=== PATIENT | female | born 1950 | race Caucasian/White ===

== ENCOUNTER 2019-07-27 08:13 | Day surgery (SDC) | payer MEDICARE, OTHER ==
[~2019-07-27 08:13] MED LIST: Lactated Ringers 1,000 ML IV SCH; Lidocaine 1%/Sod Bicarbonate in NS 8.4% 1 ML Syringe IDERM PRN; Sodium Chloride 0.9% 10 ML Syringe FLUSH PRN
[2019-07-27] MEDS ORDERED: fentaNYL 250 MCG/5 ML SDV ONE (08:36)
[2019-07-27] MEDS ORDERED: Rocuronium 50 MG/5 ML Vial ONE (08:36)
[2019-07-27] MEDS ORDERED: Lactated Ringers 1,000 ML ONE (08:36)
[2019-07-27] MEDS ORDERED: Ondansetron 4 MG/2 ML SDV ONE (08:36)
[2019-07-27] MEDS ORDERED: ceFAZolin 1 GM Vial ONE (08:36)
[2019-07-27] MEDS ORDERED: Propofol 200 MG/20 ML SDV ONE (08:36)
[2019-07-27] MEDS ORDERED: Midazolam 1 MG/ML 2 ML SDV ONE (08:36)
[2019-07-27] MEDS ORDERED: Lidocaine 1% 4 ML ONE (08:36)
[2019-07-27] MEDS ORDERED: Ketorolac 30 MG/ML SDV ONE (08:37)
[2019-07-27] MEDS ORDERED: Dexamethasone 4 MG/ML 5 ML MDV ONE (08:37)
--- NOTE | 2019-07-27 09:04 | PCM.PREANE ---
Preanesthetic Assessment - Anesthesia/Transfusion/Family Hx Anesthesia History: Prior Anesthesia Without Reaction Family History of Anesthesia Reaction: No Transfusion History: No Prior Transfusion(s) Intubation History: Unknown - Review of Systems General: No Symptoms Pulmonary: Shortness of Breath Cardiovascular: No Symptoms Gastrointestinal: No Symptoms Neurological: No Symptoms Other: Reports: None - Physical Assessment NPO Status Date: 07/26/19 NPO Status Time: 19:00 ASA Class: 2 Mental Status: Alert & Oriented x3 Airway Class: Mallampati = 1 Dentition: Reports: Normal Dentition Thyro-Mental Finger Breadths: 3 Mouth Opening Finger Breadths: 3 ROM/Head Extension: Full Lungs: Clear to Auscultation, Normal Respiratory Effort - Lab Values: Laboratory Last Values WBC 6.41 K/mm3 (3.98-10.04) 07/25/19 12:33 RBC 4.89 M/mm3 (3.98-5.22) 07/25/19 12:33 Hgb 14.8 gm/dl (11.2-15.7) 07/25/19 12:33 Hct 43.3 % (34.1-44.9) 07/25/19 12:33 MCV 88.5 fl (79.4-94.8) 07/25/19 12:33 MCH 30.3 pg (25.6-32.2) 07/25/19 12:33 MCHC 34.2 g/dl (32.2-35.5) 07/25/19 12:33 RDW Std Deviation 40.5 fL (36.4-46.3) 07/25/19 12:33 Plt Count 242 K/mm3 (182-369) 07/25/19 12:33 MPV 10.9 fl (9.4-12.3) 07/25/19 12:33 Neut % (Auto) 63.6 % (34.0-71.1) 07/25/19 12:33 Lymph % (Auto) 26.2 % (19.3-51.7) 07/25/19 12:33 [place] % (Auto) 8.7 % (4.7-12.5) 07/25/19 12:33 Eos % (Auto) 1.1 (0.7-5.8) 07/25/19 12:33 Baso % (Auto) 0.2 % (0.1-1.2) 07/25/19 12:33 Neut # (Auto) 4.08 K/mm3 (1.56-6.13) 07/25/19 12:33 Lymph # (Auto) 1.68 K/mm3 (1.18-3.74) 07/25/19 12:33 [place] # (Auto) 0.56 K/mm3 (0.24-0.36) H 07/25/19 12:33 Eos # (Auto) 0.07 K/mm3 (0.04-0.36) 07/25/19 12:33 Baso # (Auto) 0.01 K/mm3 (0.01-0.08) 07/25/19 12:33 Sodium 141 mEq/L (136-145) 07/25/19 12:33 Potassium 4.1 mEq/L (3.5-5.1) 07/25/19 12:33 Chloride 104 mEq/L (98-107) 07/25/19 12:33 Carbon Dioxide 26 mEq/L (21-32) 07/25/19 12:33 Anion Gap 15.1 (5-15) H 07/25/19 12:33 BUN 13 mg/dL (7-18) 07/25/19 12:33 Creatinine 0.8 mg/dL (0.55-1.02) 07/25/19 12:33 Est Cr Clr Drug Dosing TNP 07/25/19 12:33 Estimated GFR (MDRD) > 60 mL/min (>60) 07/25/19 12:33 BUN/Creatinine Ratio 16.3 (14-18) 07/25/19 12:33 Glucose 91 mg/dL (80-115) 07/25/19 12:33 Calcium 10.4 mg/dL (8.5-10.1) H 07/25/19 12:33 Total Bilirubin 0.4 mg/dL (0.2-1.0) 07/25/19 12:33 AST 37 U/L (15-37) 07/25/19 12:33 ALT 73 U/L (14-59) H 07/25/19 12:33 Alkaline Phosphatase 82 U/L (46-116) 07/25/19 12:33 Total Protein 8.3 g/dl (6.4-8.2) H 07/25/19 12:33 Albumin 4.3 g/dl (3.4-5.0) 07/25/19 12:33 Globulin 4.0 gm/dL 07/25/19 12:33 Albumin/Globulin Ratio 1.1 (1-2) 07/25/19 12:33 Urine Color Yellow (Yellow) 07/25/19 12:33 Urine Appearance Clear (Clear) 07/25/19 12:33 Urine pH 6.0 (5.0-8.0) 07/25/19 12:33 Ur Specific [place] 1.020 (1.005-1.030) 07/25/19 12:33 Urine Protein Negative (Negative) 07/25/19 12:33 Urine Glucose (UA) Negative (Negative) 07/25/19 12:33 Urine Ketones Negative (Negative) 07/25/19 12:33 Urine Occult Blood Trace-lysed (Negative) H 07/25/19 12:33 Urine Nitrite Negative (Negative) 07/25/19 12:33 Urine Bilirubin Negative (Negative) 07/25/19 12:33 Urine Urobilinogen 0.2 (0.2-1.0) 07/25/19 12:33 Ur Leukocyte Esterase Negative (Negative) 07/25/19 12:33 - Allergies Allergies/Adverse Reactions: Allergies Allergy/AdvReac Type Severity Reaction Status Date / Time No Known Allergies Allergy Verified 07/26/19 14:44 - Anesthesia Plan Beta Eric: Metoprolol Med Last Dose Date: 07/27/19 Med Last Dose Time: 07:00 - Acknowledgements Anesthesia Type Planned: General Anesthesia Pt an Appropriate Candidate for the Planned Anesthesia: Yes Alternatives and Risks of Anesthesia Discussed w Pt/Guardian: Yes Pt/Guardian Understands and Agrees with Anesthesia Plan: Yes PreAnesthesia Questionnaire HEENT History: Reports: Impaired Vision, Other (See Below) Other HEENT History: wears glasses Cardiovascular History: Reports: High Cholesterol, Hypertension Respiratory History: Reports: None Gastrointestinal History: Reports: Gastritis, GERD Genitourinary History: Reports: Renal Calculus, Other (See Below) Other Genitourinary History: vaginal atrophy 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: Reports: Other (See Below) Other OB/BYN History: anterior and posterior repair with mesh Musculoskeletal History: Reports: Osteoporosis, Other (See Below) Neurological History: Reports: None Psychiatric History: Reports: Depression Endocrine/Metabolic History: Reports: None Hematologic History: Reports: None Immunologic History: Reports: None Oncologic (Cancer) History: Reports: None Dermatologic History: Reports: None - Past Surgical History Head Surgeries/Procedures: Reports: None HEENT Surgical History: Reports: Cataract Surgery Cardiovascular Surgical History: Reports: None Respiratory Surgical History: Reports: None GI Surgical History: Reports: None, Cholecystectomy Female Surgical History: Reports: Hysterectomy Endocrine Surgical History: Reports: None Neurological Surgical History: Reports: None Musculoskeletal Surgical History: Reports: Shoulder Replacement, Other (See Below) Other Musculoskeletal Surgeries/Procedures:: dupytren's contracture bilat hands with repair, left rotator cuff reapir (B) Oncologic Surgical History: Reports: None Dermatological Surgical History: Reports: None - SUBSTANCE USE Smoking Status *Q: Current Some Day Smoker (pt states rarely smokes) Recreational Drug Use History: No - HOME MEDS Home Medications: Home Meds Ca Carbonate/Vitamin D3/Vit K [Calcium + D Soft Chewable Tab] 1 tab PO DAILY [History] Cholecalciferol (Vitamin D3) [Vitamin D3] 1,000 unit PO DAILY 07/26/19 [History] Clobetasol [Clobetasol Propionate 0.05% Cream] 1 dose TOP BID PRN 07/26/19 [ History] Cyclobenzaprine [Flexeril] 10 mg PO DAILY PRN 07/26/19 [History] Gemfibrozil 600 mg PO DAILY 07/26/19 [History] Latanoprost 1 drop EYEBOTH BEDTIME 07/26/19 [History] Metoprolol Succinate 50 mg PO DAILY 07/26/19 [History] Simvastatin [Zocor] 40 mg PO DAILY 07/26/19 [History] Zinc Gluconate [Zinc] 50 mg PO DAILY 07/26/19 [History] - CURRENT (IN HOUSE) MEDS Current Meds: Current Medications Lactated Ringer's (Ringers, Lactated) 1,000 mls @ 125 mls/hr IV ASDIRECTED NESTOR Stop: 07/27/19 23:00 Lidocaine/Sodium Bicarbonate (Buffered Lidocaine 1% In Ns 8.4%) 0.25 ml IDERM ONETIME PRN PRN Reason: Prior to IV Start Stop: 07/27/19 18:00 Sodium Chloride (Saline Flush) 10 ml FLUSH ASDIRECTED PRN PRN Reason: Keep Vein Open Stop: 07/27/19 18:00 Discontinued Medications Cefazolin Sodium (Ancef) Confirm Administered Dose 2 gm .ROUTE .STK-MED ONE Stop: 07/27/19 08:37 Dexamethasone (Dexamethasone) Confirm Administered Dose 20 mg .ROUTE .STK-MED ONE Stop: 07/27/19 08:38 Fentanyl (Sublimaze) Confirm Administered Dose 250 mcg .ROUTE .STK-MED ONE Stop: 07/27/19 08:37 Lidocaine HCl (Xylocaine-Mpf 1%) Confirm Administered Dose 4 mls @ as directed .ROUTE .STK-MED ONE Stop: 07/27/19 08:37 Lactated Ringer's (Ringers, Lactated) Confirm Administered Dose 1,000 mls @ as directed .ROUTE .STK-MED ONE Stop: 07/27/19 08:37 Ketorolac Tromethamine (Toradol) Confirm Administered Dose 30 mg .ROUTE .STK- MED ONE Stop: 07/27/19 08:38 Midazolam HCl (Versed 1 Mg/Ml) Confirm Administered Dose 2 mg .ROUTE .STK-MED ONE Stop: 07/27/19 08:37 Ondansetron HCl (Zofran) Confirm Administered Dose 4 mg .ROUTE .STK-MED ONE Stop: 07/27/19 08:37 Propofol (Diprivan 20 Ml) Confirm Administered Dose 400 mg .ROUTE .STK-MED ONE Stop: 07/27/19 08:37 Rocuronium [place] (Zemuron) Confirm Administered Dose 50 mg .ROUTE .STK-MED ONE Stop: 07/27/19 08:37
[2019-07-27] MEDS ORDERED: Sodium Chloride 0.9% 50 ML SDV ONE (09:14)
[2019-07-27] MEDS ORDERED: Lidocaine 1% with EPINEPHrine 1:100,000 20 ML MDV ONE (09:14)
[2019-07-27] MEDS ORDERED: Succinylcholine/Normal Saline 100 MG/5 ML Syringe ONE (09:31)
[2019-07-27] MEDS ORDERED: Ondansetron 4 MG/2 ML SDV IVPUSH PRN ×2 (10:21→10:37)
[2019-07-27] MEDS ORDERED: Acetaminophen/oxyCODONE 325-5 MG Tab PO PRN (10:21)
--- NOTE | 2019-07-27 10:28 | PCM.OPNOTE ---
- General Post-Op/Procedure Note Date of Surgery/Procedure: 07/27/19 Operative Procedure(s): Anterior and posterior vaginal repair perineoplasty Findings: Grade 3 cystocele. Grade 2 rectocele Pre Op Diagnosis: 1. Grade 3 cystocele. 2. Grade 2 rectocele Post-Op Diagnosis: Same Anesthesia Technique: General ET Tube Other Anesthesia Type: Lidocaine quarter percent with epinephrinetotal of approximately 10 mL Primary Surgeon: Richie Ly Secondary Surgeon: Ej Brady Anesthesia Provider: Lyn Troncoso Employee Development Manager: Milton Westbrook Reason Employee Development Manager Was Necessary: Retraction, assistance, quality of care. Fluid Replacement, Intraop: 1,300 EBL in mLs: 5 Drain/Tube Comments:: none Complications: None Condition: Good Free Text/Narrative:: Surgery duration: 27 minutes Procedure: The patient is taken to the operating room and placed in a supine position on the operating table. She received 2 g of Ancef preoperatively for infection prophylaxis. She had sequential compression stockings in place for DVT prophylaxis. Patient was administered general endotracheal anesthesia. She was placed in a dorsal lithotomy position and prepped and draped in the usual fashion. Anterior vaginal repair was performed. 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 Weighted speculum was placed in the vagina and the uppermost portion of the cystocele was identified. Two Allis clamps was placed at that uppermost point at a position approximately 1-1/2 cm lateral to the midline A second Allis clamp was placed approximately 2 cm from the urethral meatus. The areas and infiltrated with lidocaine quarter percent with epinephrine. Approximately 8 mL was used. The 2 lateral Allis clamps were retracted and an epithelial incision was made between the 2 clamps. A midline incision was then made with a Metzenbaum scissors. The overlying epithelium was then dissected off of the underlying vesicovaginal fascia. This all to lateral which when approximately midline was felt to be adequate to reduce the cystocele. When this was done approximately 4 trapezoidal shaped sutures of 0 Monocryl were then placed reapproximating the lateral supportive tissue midline and reducing the cystocele. At this point the excess epithelium bilaterally was removed and the epithelium was closed in a running fashion with 2 short segments to decrease likelihood of shortening of the vagina. Rectocele was then performed. The uppermost portion of the small rectocele was identified and was grasped midline with an Allis clamp. The introital area was grasped at approximately the 4:00 and 8:00 positions at the junction of the vaginal and vulvar epithelium. The area of epithelium was then infiltrated with lidocaine quarter percent with epinephrine. A corby-shaped piece of epithelium was removed from the posterior introital and perineal area. The vaginal epithelium was then undermined superiorly to the top of the rectocele. Was then incised midline. With sharp and blunt dissection the epithelium was then dissected off of the underlying vesicovaginal fascia. At this point 2 sutures of 0 Monocryl were placed to reapproximate the lateral supportive tissue midline and reduce the rectocele. The excess epithelium was then excised and the epithelium overlying the rectocele repair was then reapproximated with a running suture of 3-0 Monocryl. Perineoplasty was then performed with approximately 4 V-shaped stitches of 0 Monocryl in placed to reapproximate the lateral tissue midline, rebuild the perineum about 1 cm and the vagina approximately 1 cm. The epithelium of the introitus and perineal body was then reapproximated using 3-0 Monocryl in an episiotomy repair fashion. At this time sponge, instrument and needle counts were correct. The patient was returned to supine position and was discharged from the operating room in good condition.
[2019-07-27] MEDS ORDERED: Ketorolac 30 MG/ML SDV IVPUSH SCH (10:30)
--- NOTE | 2019-07-27 10:36 | PCM.POSTAN ---
POST ANESTHESIA ASSESSMENT - MENTAL STATUS Mental Status: Other (Drowsy) - VITAL SIGNS Vital Signs: Last Vital Signs Temp 37.1 C 07/27/19 08:19 Pulse 78 07/27/19 08:19 Resp 18 07/27/19 08:19 BP 145/74 H 07/27/19 08:19 Pulse Ox 97 07/27/19 08:19 1031 147/62 104 20 96% 97.6F - RESPIRATORY Respiratory Status: Respiratory Rate WNL, Airway Patent, O2 Saturation Stable, Supplemental Oxygen - CARDIOVASCULAR CV Status: Pulse Rate WNL, Blood Pressure Stable - GASTROINTESTINAL GI Status: No Symptoms - PAIN Pain Score: 4 - POST OP HYDRATION Hydration Status: Adequate & Stable
[2019-07-27] MEDS ORDERED: HYDROmorphone 0.5 MG/0.5 ML Syringe IVPUSH PRN (10:37)
[2019-07-27] MEDS ORDERED: fentaNYL 100 MCG/2 ML SDV IVPUSH PRN (10:37)
[2019-07-27] MEDS ORDERED: Phenylephrine/Normal Saline 100 MCG/ML 10 ML Syringe ONE (11:53)
[2019-07-27] MEDS ORDERED: fentaNYL 100 MCG/2 ML SDV ONE (12:35)
[2019-07-27] MEDS ORDERED: Neostigmine Methylsulfate 1 MG/ML 5 ML Syringe ONE (12:37)
--- NOTE | 2019-07-30 14:00 | PCM48HPAN ---
Post Anesthesia Note - EVALUATION WITHIN 48HRS OF ANESTHETIC Vital Signs in Normal Range: Yes Patient Participated in Evaluation: Yes Respiratory Function Stable: Yes Airway Patent: Yes Cardiovascular Function Stable: Yes Hydration Status Stable: Yes Pain Control Satisfactory: Yes Nausea and Vomiting Control Satisfactory: Yes Mental Status Recovered: Yes Vital Signs: Last Vital Signs Temp 36.6 C 07/27/19 11:20 Pulse 65 07/27/19 11:20 Resp 14 07/27/19 11:20 BP 140/66 07/27/19 11:20 Pulse Ox 98 07/27/19 11:20
== END 2019-07-27 12:11 | disposition home or self-care (01) ==
LOC: JD.SDS 08:13
PROVIDERS: ATTEND Obstetrics & Gynecology
DX: N81.10 Cystocele, unspecified (principal); N81.6 Rectocele; N95.2 Postmenopausal atrophic vaginitis; E78.00 Pure hypercholesterolemia, unspecified; K21.9 Gastro-esophageal reflux disease without esophagitis; K44.9 Diaphragmatic hernia without obstruction or gangrene; F32.9 Major depressive disorder, single episode, unspecified; F17.210 Nicotine dependence, cigarettes, uncomplicated; M81.0 Age-related osteoporosis without current pathological fracture; N20.0 Calculus of kidney; Z79.899 Other long term (current) drug therapy
CPT/HCPCS: 36415; 57260; 80053; 81003; 85025; 93005; J0330; J0690; J1100; J1885; J2001; J2250; J2370; J2405; J2704; J2710; J3010; J7120